=== PATIENT | male | born 1955 | race Caucasian/White ===

== ENCOUNTER 2025-08-22 08:19 | Outpatient (CLI) | payer MEDICARE, SELFPAY ==
--- NOTE | ~2025-08-22 | PE_ITS ---
EXAMINATION: PET skull to mid thigh DATE: 08/22/2025 10:33 INDICATION: Lung mass. TECHNIQUE: Blood glucose level was 68 mg/dL. 10.419 mCi of 18-fluorodeoxyglucose (18-FDG) was administered i.v. Low dose computed tomography (CT) images were acquired from the base of the brain to the proximal thighs for attenuation correction and anatomic localization. Automated exposure control was employed. Dose-length product (DLP) was 1066 mGy-cm. Positron emission tomography (PET) images were acquired in the same distribution. COMPARISON: None FINDINGS: Head/neck: There are no pathologically enlarged lymph nodes. Chest: There is a 2.5 cm nodule in right lung upper lobe with maximum SUV of 11.7. 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 There are perihilar groundglass opacities in left lung upper lobe with increased activity, which may be inflammation. No pleural effusion. There is a 2.5 x 1.5 cm right hilar lymph node with increased activity. There is a normal-sized right paratracheal lymph node with increased activity The heart size is normal. There are coronary artery calcifications. No pericardial effusion. There is mild bilateral gynecomastia. Abdomen/pelvis/proximal thighs: The liver, gallbladder, spleen, and pancreas are normal. There is a 10 mm right adrenal mass with maximum SUV of 8.6. There is a 2.5 cm mass in left adrenal gland with maximum SUV of 7.9. There is a 4 mm stone in right kidney. Left kidney is normal. The prostate is mildly enlarged. There are bilateral inguinal hernias containing fat. The appendix is normal. There are no dilated loops of bowel. There are no pathologically enlarged lymph nodes. There is no free intraperitoneal fluid. There is no osseous malignancy. IMPRESSION: 1. Nodule in right lung upper lobe with increased activity, consistent with primary malignancy. 2. Right hilar and mediastinal lymphadenopathy and bilateral adrenal masses with increased activity, consistent with metastatic disease. Reviewed, dictated and finalized at location E. IMPRESSION: 1. Nodule in right lung upper lobe with increased activity, consistent with ca areli malignancy. 2. Right hilar and mediastinal lymphadenopathy and bilateral adrenal masses wit h increased activity, consistent with metastatic disease.
== END 2025-08-22 08:20 | disposition home or self-care (01) ==
PROVIDERS: PCP Internal Medicine Hematology & Oncology; Visit Provider Internal Medicine Hematology & Oncology
DX: R91.8 Other nonspecific abnormal finding of lung field (principal); E27.8 Other specified disorders of adrenal gland
CPT/HCPCS: 78815; A9552